=== PATIENT | male | born 1960 | race Hispanic/Latino ===

== ENCOUNTER 2016-11-23 05:49 | Inpatient (IN) | payer BC ==
--- NOTE | 2016-11-19 11:43 | Anesthesia Consultation ---
<CLIFFORD LEVY - Last Filed: 11/19/16 11:40> Anesthesia Consult and Med Hx Date of service: 11/19/16 - Airway Anesthetic Teeth Evaluation: Poor (edentulous on the top, multiple broken careous teeth on the bottom ) ROM Head & Neck: Adequate Mental/Hyoid Distance: Adequate Mallampati Class: Class II Intubation Access Assessment: Probably Good - Pre-Operative Health Status ASA Pre-Surgery Classification: ASA2 Proposed Anesthetic Plan: Epidural, Spinal - Pulmonary Hx Smoking: Yes (QUIT SMOKING 2013, CHEWING TOBACCO ONLY) COPD: No Hx Sleep Apnea: (HIGH RISK) - Central Nervous System Hx Psychiatric Problems: No - Other Systems Hx Alcohol Use: Yes (QUIT 3 YRS AGO, H/O ALCOHOL ABUSE ) Hx Substance Use: No Hx Cancer: Yes (HODGKINS LYMPHOMA, REMISSION SINCE 1997/CHEMO 18 MONTHS) <ALEXANDRIA HOPSON - Last Filed: 11/23/16 07:12> Anesthesia Consult and Med Hx - Pre-Operative Health Status ASA Pre-Surgery Classification: ASA3
[2016-11-19 13:46] LABS: Basophils % (Auto) 0.9 % (0.0-1.8); Eosinophils % (Auto) 6.4 % (0.0-4.3); Hematocrit 38.9 % (35.5-45.6); Hemoglobin 13.3 gm/dl (11.8-15.2); Mean Corpuscular HGB Conc 34 % (32-34); Mean Corpuscular Hemoglobin 32 pg (28-32); Mean Corpuscular Volume 93 fl (84-94); Platelet Count 266 K/mm3 (140-440); Red Blood Count 4.19 M/mm3 (3.65-5.03); Red Cell Distribution Width 14.4 % (13.2-15.2); White Blood Count 8.1 K/mm3 (4.5-11.0)
[2016-11-19 13:58] LABS: INR 0.94 (0.87-1.13); Partial Thromboplastin Time 31.6 Sec. (24.2-36.6)
[2016-11-19 14:19] LABS: Alanine Aminotransferase 64 units/L (7-56); Alkaline Phosphatase 74 units/L (35-129); Anion Gap 23 mmol/L; BUN/Creatinine Ratio 17.77; Bilirubin,Total 0.4 mg/dL (0.1-1.2); Blood Urea Nitrogen 16 mg/dL (9-20); Calcium 9.6 mg/dL (8.4-10.2); Carbon Dioxide 20 mmol/L (22-30); Chloride 106.2 mmol/L (98-107); Glucose 96 mg/dL (75-100); Potassium 3.9 mmol/L (3.6-5.0); Sodium 145 mmol/L (137-145); Total Protein 7.1 g/dL (6.3-8.2)
[2016-11-19 14:51] LABS: Albumin 4.4 g/dL (3.9-5); Albumin/Globulin Ratio 1.6 %
[~2016-11-23 05:49] MED LIST: ANCEF/STERILE WATER 2 GM/20 ML 2 GM/20 ML SYRINGE IV NR
[2016-11-23] MEDS ORDERED: NACL BACTERIOSTATIC INFILTRATI ONE (06:39)
[2016-11-23] MEDS ORDERED: LACTATED RINGERS 1,000 ML IV SCH (07:00)
[2016-11-23] MEDS ORDERED: PEPCID IV NR (07:00)
[2016-11-23] MEDS ORDERED: VERSED IV NR (07:00)
[2016-11-23] MEDS ORDERED: SUBLIMAZE ONE (07:24)
[2016-11-23] MEDS ORDERED: DIPRIVAN 10 MG/ML IV ONE ×3 (07:24→09:17)
--- NOTE | 2016-11-23 07:33 | Anesthesia Day of Surgery ---
Anesthesia Day of Surgery - Day of Surgery Patient Examined: Yes Patient H&P Reviewed: Yes Patient is NPO: Yes Beta Blockers: No Cardiac Clearance: No Pulmonary Clearance: No
[2016-11-23] MEDS ORDERED: KETALAR IV ONE (08:07)
[2016-11-23] MEDS ORDERED: NACL ONE (08:16)
[2016-11-23] MEDS ORDERED: VANCOMYCIN VIAL ONE (08:17)
[2016-11-23] MEDS ORDERED: TRANEXAMIC ACID ONE (08:17)
[2016-11-23] MEDS ORDERED: MARCAINE-EPI 0.25%-1:200,000 INFILTRATI ONE ×2 (08:17→08:30)
[2016-11-23] MEDS ORDERED: NACL P/F VIAL (10 ML) 30 ML ONE (08:17)
[2016-11-23] MEDS ORDERED: ACD-A 500 ML IV ONE (08:23)
[2016-11-23] MEDS ORDERED: NACL INFILTRATI ONE (08:25)
[2016-11-23] MEDS ORDERED: NACL 0.9% IR ONE (08:25)
[2016-11-23] MEDS ORDERED: ACD-A IV ONE (08:35)
--- NOTE | 2016-11-23 08:49 | Admit Criteria Form ---
Admission Criteria Documentation: AMBULATORY SURGERY EXCEPTION CRITERIA Ambulatory Surgery Exception Criteria ( Place 'X' for any and all applicable criteria): Surgery or procedure performed on ambulatory basis may require inpatient stay for[A] ANY ONE of the following(1)(2)(3)(4)(5)(6)(7)(8)(9): [X] I. A preoperative situation, condition, or finding that warrants inpatient stay as indicated by ANY ONE of the following: [X] a) Inpatient care needed because of severity of a disease or condition rather than the surgery (eg, severe cardiac or respiratory disease, severe infection) (15) (16 ) (17) (18) [] b) Emergent procedure (eg, angioplasty for acute ischemia)(19) [] c) Complex surgical approach or situation as indicated by ANY ONE of the following(3): [] i) Open approach needed instead of usual endoscopic, transcatheter, or other less invasive procedure [] ii) Difficult approach because of previous operation [] iii) Airway monitoring required after open neck procedures(20)(21) [] iv) Large mass requiring unusually extensive dissection [] v) Additional complicating feature requiring inpatient care (eg, drain management)(22(23): [] d) Major surgery in a pt with high anesthetic risk as indicated by ANY ONE of the following (2)(3)(5)(7)(8): [] i) ASA risk class III or higher (severe systemic disease impairing function) [D] [] ii) Advanced age (eg, older than 85 years)(14)(24) [] iii) Symptomatic heart failure(25) [] iv) Symptomatic asthma or COPD(8)(21) [] v) Morbid obesity with hemodynamic or respiratory problems(20)( 21)(26)(27) [] vi) Obstructive sleep apnea(20)(21) [] vii) Former premature infants who are younger than 60 weeks [] viii) High risk for severe postoperative abnormalities (eg, severe postoperative hypocalcemia after parathyroidectomy for severe hyperparathyroidism)(27)( 28) [] ix) Unstable angina(25) [] e) Drug-related risk requiring inpatient stay as indicated by ANY ONE of the following(5)(10)(14)(32)(33) [] i) Procedure requires discontinuing drugs or other therapy (eg , antiarrhythmic medication, antiseizure medication), which necessitates inpatient observation or treatment.(18)(31) [] ii) Major surgery and high risk drug use as indicated by ANY ONE of the following: [] 1) Active abuse of cocaine or similar drug [] 2) Monoamine oxidase inhibitor use [] 3) Other drug identified as posing risk [] f) Inadequate outpatient care situation as indicated by ANY ONE of the following(5)(10)(14)(32)(33) [] i) Patient lives remote from medical facility and procedure has urgent complication potential, and temporary nearby residence cannot be arranged [] ii) Patient will have postprocedure incapacitation and inadequate assistance at home, or alternative level of care cannot be arranged. [] iii) Patient will have long general anesthesia or procedure side effect resolution time, and competent person to stay with patient on first postoperative night at home or alternative level of care cannot be arranged. []iv) Other inadequate outpatient situation that cannot be handled by other means [] II. A perioperative event, condition, or finding that warrants inpatient stay as indicated by ANY ONE of the following (1)(2)(3): [] a) Inadequate physiologic recovery: cardiovascular, respiratory, or hemodynamic status not normal or near preoperative baseline(18) [] b) Hemodynamic instability [] c) Patient not alert with near normal or baseline mental status [] d) Temperature not normal or as expected and not appropriate for outpatient treatment of condition [] e) Ambulatory or appropriate activity level status not yet achieved post procedure [E](34)(35)(36) [] f) Operative site not appropriate (eg, unexpected or excessive drainage or bleeding) [] g) Postoperative effects not resolved or adequately managed (eg, significant pain or vomiting not appropriate for outpatient or next level of care)(10)(12) [] h) Complicating features requiring inpatient care as indicated by ANY ONE of the following(37): [] i) Severe complications of procedure (eg, bowel injury, airway compromise, vascular injury,severe hemorrhage) [] ii) Extensive (eg, dissection far beyond usual scope of procedure ) or prolonged (eg, 120 minutes beyond usual) surgery needed requiring inpatient postoperative care [] iii) Conversion to an open or complex procedure that requires inpatient care (eg, open vs laparoscopic cholecystectomy, abdominal vs vaginal hysterectomy)(38) [] iv) Comorbid condition or test result identified during or post procedure that requires inpatient care (7) [] v) Malignant hyperthermia(30) [] vi) Other complicating feature requiring inpatient care(22)(23) Inpatient stay may be needed until ALL of the following are present (1)(2)(3)(4) (5)(6)(10)(14)(33)(40): []a) Physiologic recovery: cardiovascular, respiratory, and hemodynamic status normal or near preoperative baseline []b) Hemodynamic stability []c) Patient alert, with near normal or baseline mental status []d) Temperature appropriate: patient afebrile or temperature appropriate for outpt treatment of condition []e) Activity level appropriate: ambulatory or appropriate activity level post procedure []f) Operative site appropriate as indicated by ALL of the following: []i) Site dry or with expected drainage []ii) Any blood noted is as expected for procedure. []g) Postoperative effects resolved or managed as indicated by ALL of the following: []i) Pain management appropriate for outpatient (or next level of) care(10) []ii) Minimal nausea and vomiting: if present, successfully treated with oral medication(12) []iii) Headache, dizziness, or drowsiness (if present) are mild. []h) Voiding status acceptable as indicated by ANY ONE of the following: []i) Voiding spontaneously []ii) No voiding but instructions given for follow-up in 6 to 8 hours []iii) Urinary catheter in place, and instructions given for follow-up []i) Complicating features requiring inpatient care manageable at a lower level of care(37) []j) Comorbid conditions manageable at a lower level of care(37) The original [employer] content created by [employer] has been revised. The portions of the content which have been revised are identified through the use of italic text or in bold, and [employer] has neither reviewed nor approved the modified material. All other unmodified content is copyright [employer]. Please see references footnoted in the original [employer] edition 2016 Admission Criteria Met: Yes
[2016-11-23] MEDS ORDERED: TRANEXAMIC ACID IV ONE (09:35)
[2016-11-23] MEDS ORDERED: NACL P/F VIAL (10 ML) INFILTRATI ONE (09:35)
[2016-11-23] MEDS ORDERED: VANCOMYCIN VIAL IRRIGATION ONE (09:35)
[2016-11-23] MEDS ORDERED: ZOFRAN ONE (09:39)
[2016-11-23] MEDS ORDERED: DILAUDID ONE (10:08)
--- NOTE | 2016-11-23 10:16 | XRay Report ---
Operative left hip: AP projection demonstrates a total hip replacement. There is good positioning of the acetabular and femoral components.
[2016-11-23] MEDS ORDERED: DULCOLAX PR PRN (10:20)
[2016-11-23] MEDS ORDERED: ZOFRAN IV PRN (10:20)
[2016-11-23] MEDS ORDERED: MILK OF MAGNESIA PO PRN (10:20)
[2016-11-23] MEDS ORDERED: PHENERGAN PR PRN (10:20)
[2016-11-23] MEDS ORDERED: SODIUM CHLORIDE FLUSH SYRINGE 10 ML IV PRN (10:20)
[2016-11-23] MEDS ORDERED: AMBIEN PO PRN (10:20)
--- NOTE | 2016-11-23 10:28 | Short Stay Summary ---
Short Stay Documentation Date of service: 11/23/16 - History H&P: obtained from office - Allergies and Medications Current Medications: Allergies No Known Allergies Allergy (Unverified 11/18/16 12:29) Home Medications Medication Instructions Recorded Confirmed Last Taken Type Aspirin/Caffeine [Bc Arthritis 1 pack PO DAILY PRN 11/18/16 11/18/16 11/18/16 12 :00 History Powder Packet] HYDROcodone/ACETAMINOPHEN 1 tab PO DAILY PRN 11/18/16 11/18/16 Unknown History [Hydrocodon-Acetaminophen 5-325] Multivit-Min/FA/Lycopen/Lutein 1 each PO DAILY 11/18/16 11/18/16 Unknown History [Adults 50+ Multivitamin Tablet] Active Medications Famotidine (Pepcid) 20 mg IV PREOP NR Stop: 11/23/16 23:59 Last Admin: 11/23/16 07:00 Dose: 20 mg Lactated Ringer's (Lactated Ringers) 1,000 mls @ 100 mls/hr IV DIRECT TRINH Last Admin: 11/23/16 06:55 Dose: 100 mls/hr Cefazolin Sodium (Ancef/Sterile Water 2 Gm/20 Ml) 2 gm in 20 mls @ 80 mls/hr IV PREOP NR PRN Reason: Protocol Stop: 11/23/16 23:59 Midazolam HCl (Versed) 2 mg IV PREOP NR Stop: 11/23/16 23:59 Last Admin: 11/23/16 07:12 Dose: 2 mg - Brief post op/procedure progress note Date of procedure: 11/23/16 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
--- NOTE | 2016-11-23 11:32 | Post Anesthesia Evaluation ---
- Post Anesthesia Evaluation Patient Participated: No Airway Patent: Yes Stable Respiratory Function: Yes Nausea/Vomiting: No Temp > 96.8F: Yes Pain Manageable: Yes Adequeate Hydration: Yes Anesthesia Complications: Yes Block Receding Appropriately: Yes Patient on Ventilator: No
[2016-11-23] MEDS: MORPHINE IV PRN ×2 (13:30→18:34)
[2016-11-23] MEDS: PERCOCET 5/325 PO PRN (15:07)
[2016-11-23] MEDS: ANCEF/NS 1 GM/50 ML 1 GM/50 ML BAG IV SCH ×2 (23:12→23:50)
[2016-11-23] MEDS: D5/0.45NS 1,000 ML IV SCH (23:49)
[2016-11-23] MEDS: COLACE PO SCH (23:51)
[2016-11-23] MEDS: ASPIRIN PO SCH (23:51)
[2016-11-24] MEDS: ANCEF/NS 1 GM/50 ML 1 GM/50 ML BAG IV SCH ×3 (06:30→19:39)
[2016-11-24] MEDS: OxyCONTIN PO SCH ×3 (06:36→23:02)
[2016-11-24] MEDS: COLACE PO SCH ×2 (09:40→23:02)
[2016-11-24] MEDS: ASPIRIN PO SCH ×2 (09:40→23:02)
--- NOTE | 2016-11-24 13:55 | Operative Report ---
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 POSTOPERATIVE DIAGNOSIS: Left hip femoral neck nonunion. PROCEDURE: Left total hip replacement arthroplasty, direct anterior approach. SURGEON: Janee Lynne MD CINDER BLOCK MASON: Fantasma Chen RN ANESTHESIA: General, spinal block. COMPLICATIONS: None. FINDINGS: Non-union of the femoral neck. PROCEDURE IN DETAIL: Once the patient was in surgical room, a time-out was carried out to identify the patient and procedure. The patient was then placed on the Edmond table. Appropriate padding and protection was carried out of the patient in this fashion. Once this was done, a timeout, the procedure was carried out by making a direct anterior approach of the hip joint by making a 15 cm incision anterior to the hip joint, dissection carried out and this turned through the subcutaneous tissues and fascia. The procedure carried out medial to the sartorius tendon, the fat pad was coagulated and excised, anterior capsulectomy of the hip was done. Retractors were inserted anterior posteriorly and superiorly to the socket. At this point, the acetabular, the nonunion was found. The neck was cut. The femoral head was removed. Appropriate retractors inserted. Acetabulum was then prepared using multiple size reamers. This allowed for the insertion over and acetabular shell which was inserted and fixed with one single screw. X-rays were taken to demonstrate position of the cup. Once this was done, the procedure was continued by using the Edmond table, bringing the leg in abduction and extension, and external rotation. The neck was exposed. Trochanteric ostectomy was carried out, the medullary canal was entered with a guidewire following this by reaming, following this by the insertion of rasps. The hip was rasped with size 5. Once this was done, using the rasp in place, a trial head was inserted. Reduction of the hip was carried out and measurement of leg length was done. Once the appropriate neck length was determined, again using fluoroscopy, the procedure was continued by bringing the leg in external rotation. Again, the hip dislocated, the actual component was inserted, locked in place and the femoral neck reduced in to the socket. The hip was found to be stable. The leg length was equal. The procedure terminated. The wound was irrigated extensively. Tranexamic acid was used followed by infiltration of the skin with Marcaine with epinephrine. Closure of the wound was carried out by closing the fascial layers and the subcutaneous tissues without any complications. The skin closed with skin clips. A compression bandage was applied. The patient tolerated the procedure well. There were no complications. JOB# [id number] TREY/LASHELL
[2016-11-24] MEDS: MORPHINE IV PRN ×2 (15:12→20:30)
--- NOTE | 2016-11-24 15:34 | Progress Note ---
Subjective Date of service: 11/24/16 Interval history: 1st POD after total hip arthroplasty Patient is in the bed, comfortable. Pain is well controlled with pain meds. No residual neurological deficit. Prepares to be ambulated by physical therapist. No anesthesia complications Objective - Constitutional Vitals: Vital Signs - 12hr 11/24/16 11/24/16 11/24/16 08:00 09:39 10:00 Temperature 97.9 F Pulse Rate [ 89 From Monitor] Respiratory 16 16 Rate Blood Pressure 102/60 [from monitor] O2 Sat by Pulse 96 97 Oximetry 11/24/16 11/24/16 11/24/16 10:11 10:39 12:00 Temperature 98.3 F Pulse Rate [ 86 From Monitor] Respiratory 16 18 16 Rate Blood Pressure 92/65 [from monitor] O2 Sat by Pulse Oximetry - Labs CBC & Chem 7: 11/19/16 11:00 11/19/16 11:00
[2016-11-25] MEDS ORDERED: NACL 0.9% 500 ML 500 ML IV ONE (04:16)
[2016-11-25] MEDS: D5/0.45NS 1,000 ML IV SCH ×3 (04:21→22:12)
[2016-11-25] MEDS: PERCOCET 5/325 PO PRN ×2 (09:18→19:40)
[2016-11-25] MEDS: COLACE PO SCH ×2 (10:41→22:10)
[2016-11-25] MEDS: OxyCONTIN PO SCH ×2 (10:41→22:10)
[2016-11-25] MEDS: ASPIRIN PO SCH ×2 (10:42→22:10)
[2016-11-25 11:13] LABS: Hematocrit 21.8 % (35.5-45.6); Hemoglobin 7.4 gm/dl (11.8-15.2); Mean Corpuscular HGB Conc 34 % (32-34); Mean Corpuscular Hemoglobin 32 pg (28-32); Mean Corpuscular Volume 95 fl (84-94); Platelet Count 127 K/mm3 (140-440); Red Cell Distribution Width 14.3 % (13.2-15.2); White Blood Count 8.9 K/mm3 (4.5-11.0)
[2016-11-25] MEDS ORDERED: NACL 0.9% 500 ML 500 ML IV NR (16:20)
--- NOTE | 2016-11-25 17:33 | Progress Note ---
Assessment and Plan will transfuse 2 units PRBC's tonight and dc to home in am Subjective Date of service: 11/25/16 Interval history: no c/o except some incisional pain Objective Vital signs: Vital Signs - 12hr 11/25/16 11/25/16 11/25/16 08:00 12:00 16:00 Temperature 98 F 97.7 F 98.7 F Pulse Rate [ 96 H 88 From Monitor] Respiratory 18 85 H 18 Rate Blood Pressure 98/62 83/56 94/63 [from monitor] O2 Sat by Pulse 96 96 100 Oximetry Narrative Exam: patient's Hgb level 7.1 gms - Labs CBC & BMP: 11/25/16 10:59 11/19/16 11:00 Labs: Abnormal lab results 11/25/16 Range/Units 10:59 RBC 2.30 L (3.65-5.03) M/mm3 Hgb 7.4 L (11.8-15.2) gm/dl Hct 21.8 L (35.5-45.6) % MCV 95 H (84-94) fl Plt Count 127 L (140-440) K/mm3
[2016-11-26 06:05] LABS: Hematocrit 26.9 % (35.5-45.6); Hemoglobin 9.2 gm/dl (11.8-15.2)
[2016-11-26] MEDS: PERCOCET 5/325 PO PRN (08:42)
[2016-11-26 09:31] VITALS: BP 103/67
--- NOTE | 2016-11-26 10:31 | Progress Note ---
Subjective Date of service: 11/26/16 Objective Vital signs: Vital Signs - 12hr 11/25/16 11/26/16 11/26/16 23:00 00:44 00:50 Temperature 99.3 F 98.2 F Pulse Rate 80 80 Pulse Rate [ 97 H From Monitor] Respiratory 16 16 Rate Blood Pressure 87/61 87/61 Blood Pressure 108/69 [from monitor] O2 Sat by Pulse 98 Oximetry 11/26/16 11/26/16 11/26/16 01:05 01:18 01:35 Temperature 97.9 F 97.9 F 98 F Pulse Rate 74 74 74 Pulse Rate [ From Monitor] Respiratory 16 18 16 Rate Blood Pressure 95/55 93/55 91/61 Blood Pressure [from monitor] O2 Sat by Pulse Oximetry 11/26/16 11/26/16 11/26/16 02:05 02:35 03:05 Temperature 97.8 F 98.4 F 98.2 F Pulse Rate 73 71 74 Pulse Rate [ From Monitor] Respiratory 18 18 18 Rate Blood Pressure 92/53 87/62 88/65 Blood Pressure [from monitor] O2 Sat by Pulse Oximetry 11/26/16 11/26/16 03:35 08:00 Temperature 97.4 F L 98.0 F Pulse Rate 80 Pulse Rate [ 86 From Monitor] Respiratory 18 16 Rate Blood Pressure 107/69 Blood Pressure 103/67 [from monitor] O2 Sat by Pulse 98 Oximetry - Labs CBC & BMP: 11/26/16 05:39 11/19/16 11:00 Labs: Abnormal lab results 11/25/16 11/25/16 11/26/16 Range/Units 10:59 16:51 05:39 RBC 2.30 L (3.65-5.03) M/mm3 Hgb 7.4 L 9.2 L (11.8-15.2) gm/dl Hct 21.8 L 26.9 L (35.5-45.6) % MCV 95 H (84-94) fl Plt Count 127 L (140-440) K/mm3 Crossmatch See Detail
[2016-11-26] MEDS: COLACE PO SCH (10:43)
[2016-11-26] MEDS: ASPIRIN PO SCH (10:44)
[2016-11-26] MEDS: OxyCONTIN PO SCH (10:44)
== END 2016-11-26 13:00 | disposition home or self-care (01) | DRG 470 ==
LOC: 3A 05:49 → 2B-SURG 10:46
PROC: 0SRB0JZ Replacement of Left Hip Joint with Synthetic Substitute, Open Approach (ICD-10-PCS; principal; 2016-11-24)
PROC: 30233N1 Transfusion of Nonautologous Red Blood Cells into Peripheral Vein, Percutaneous Approach (ICD-10-PCS; 2016-11-26)
DX: S72.002A Fracture of unspecified part of neck of left femur, initial encounter for closed fracture (principal); Z85.72 Personal history of non-Hodgkin lymphomas; Z87.891 Personal history of nicotine dependence; Z79.82 Long term (current) use of aspirin
CPT/HCPCS: 36415; 62324; 80053; 85014; 85018; 85025; 85027; 85610; 85730; 86850; 86900; 86901; 86920; 88304; 88311; C1776; J0690; J1170; J2250; J2270; J2405; J2704; J3010; J3370; J7040; J7120; P9016

== ENCOUNTER 2017-04-11 10:10 | Outpatient (CLI) | payer BC ==
--- NOTE | 2017-04-11 11:07 | Mammography Report ---
BONE DEXA:04/11/17 10:10:00 CLINICAL: Postmenopausal. No comparison. TECHNIQUE: Two site bone DEXA performed on an Hologic scanner. FINDINGS: The average BMD of the lumbar spine L1-L4 is 0.967g/cm squared with a T-score of -1.1 and a Z-score of -0.6. The average BMD of the right hip is 0.745g/cm squared with a T-score of -1.9 and a Z-score of is 1.5. IMPRESSION: WHO classification: Osteopenia with increased fracture risk based on both spine and right hip measurements. RECOMMENDATION: Clinical correlation and routine screening. DEFINITIONS: BMD = Bone Mineral Density T-score = BMD related to mean peak bone mass of young adult (mean expressed in Standard Deviation) Z-score = Age matched BMD expressed in SD World Health Organization (WHO) Diagnostic Criteria Normal T-score > -1 SD Osteopenia T-score between -1 and -2.4 SD Osteoporosis T-score -2.5 SD or below NOTE: BMD is not the only risk factor for fracture. One should also consider factors such as the patient's age, risk of falling, previous osteoporotic fracture, family history of osteoporotic fractures, current smoker, and low body weight. Z-scores are not calculated if >80 years of age.
== END 2017-04-11 10:11 | disposition home or self-care (01) ==
LOC: SPVWC 10:10
PROVIDERS: ATTEND Family Medicine
DX: M85.88 Other specified disorders of bone density and structure, other site (principal); Z85.71 Personal history of Hodgkin lymphoma; Z96.642 Presence of left artificial hip joint; S22.39XD Fracture of one rib, unspecified side, subsequent encounter for fracture with routine healing; Z87.891 Personal history of nicotine dependence; X58.XXXD Exposure to other specified factors, subsequent encounter
CPT/HCPCS: 77080